=== PATIENT | female | born 1960 | race Caucasian/White ===

== ENCOUNTER 2019-12-12 07:34 | Emergency (ER) | payer OTHER ==
[~2019-12-12] VITALS: Ht 162.6 cm; Wt 68.0 kg
[~2019-12-12 07:34] MED LIST: SERTRALINE HCL50 MG PO
[2019-12-12] MEDS ORDERED: AUGMENTIN 875-1 EACH PO (07:55)
== END 2019-12-12 08:24 | disposition home or self-care (01) ==
LOC: ED 07:34
DX: S61.252A Open bite of right middle finger without damage to nail, initial encounter (principal); W54.0XXA Bitten by dog, initial encounter; F41.9 Anxiety disorder, unspecified; F17.200 Nicotine dependence, unspecified, uncomplicated; Z88.0 Allergy status to penicillin; Z88.5 Allergy status to narcotic agent; Z88.8 Allergy status to other drugs, medicaments and biological substances; Z79.899 Other long term (current) drug therapy
CPT/HCPCS: 12001; 90471; 90715; 99283-25

== ENCOUNTER 2022-09-29 09:40 | Day surgery (SDC) | payer OTHER ==
[~2022-09-29] VITALS: Ht 162.6 cm; Wt 67.3 kg
[~2022-09-29 09:40] MED LIST changes: +AUGMENTIN 875-1 EACH PO; +GLYCOTROL CAPS1 EACH PO; +MULTI VITAMIN1 EACH PO; +PRILOSEC OTC20 MG PO; +VIT C-ROSE HIP500 MG PO
[2022-09-29] MEDS ORDERED: CRESTOR5 MG PO (09:58)
--- NOTE | 2022-09-29 11:54 | NUR ---
09/29/22 1154 Sheets,Christine 1148 PT ARRIVED TO PACU ON RA AND PT REPORTS CRAMPING IN ABD. PT ENCOURAGED TO ROLL TO LEFT SIDE, PT PASSING LARGE AMOUNT OF GAS AND REPORTS FEELING "BETTER." PT WAKES EASILY TO VERBAL STIMULI.
--- NOTE | 2022-10-02 12:36 | OR ---
[facility] [address], [place] [address] Signed DATE OF OPERATION: 09/29/2022 SURGEON: Zay Moody MD PREOPERATIVE DIAGNOSIS: Colon screening. POSTOPERATIVE DIAGNOSES: 1. Sigmoid and left-sided diverticulosis. 2. Multiple small polyps, probably hyperplastic. PROCEDURE: Total colonoscopy to the cecum with cold morcellation polypectomy x5. ANESTHESIA: Intravenous sedation, propofol infusion, Jamison Alvarez CRNA INDICATIONS: This 61-year-old white woman is a patient of Dr. Sally Contreras. She is known to me from the past having undergone breast biopsy for benign fibrocystic changes. She has not had colonoscopy in the past and is admitted at this time to do so. The risk of bleeding, infection, and perforation related to colonoscopy was reviewed with her. FINDINGS: She was given Ancef preoperatively on the basis of prior shoulder replacement operation at [facility]. She had a good prep and complete colonoscopy was undertaken of the cecum with good visualization of the ileocecal valve and appendiceal orifice. She had several small polyps of the rectum, sigmoid and left colon, all of them probably hyperplastic. Numerous diverticula were noted in the sigmoid and elsewhere. There were no signs of colitis or cancer proper. DESCRIPTION OF PROCEDURE: The patient was brought to the endoscopy suite and placed in the lateral decubitus position, given intravenous sedation to the point of slurred speech and nystagmus. Digital rectal examination was normal. An Olympus video colonoscope was passed in the rectum and manipulated into small hyperplastic appearing polyps were noted. They were all excised with cold morcellation technique. The scope was then passed into the sigmoid where numerous diverticula were seen and ultimately advanced to the cecum. The ileocecal valve and Electronically Signed By: ZAY MOODY MD 10/02/22 1236 PATIENT NAME: CHRISTOPHER GARRIDO OPERATIVE REPORT DATE OF : 64 REPORT #: [id number] PHYSICIAN: ZAY MOODY MD PCP: SALLY CONTRERAS MD REPORT IS CONFIDENTIAL AND NOT TO BE RELEASED WITHOUT AUTHORIZATION [facility] [address], [place] [address] Signed appendiceal orifice were normal. Scope was withdrawn and examination undertaken showing no sign of abnormality into the left colon where small polyp was noted, this was excised with cold morcellation technique. Most likely it was hyperplastic. Further withdrawal showed two small polyps of the sigmoid, both excised with cold morcellation technique. Further withdrawal showed the areas of previous biopsy of the rectum. Retroflexed view was normal. Scope was removed and the patient was taken to the recovery room in good condition. CONCLUDING DIAGNOSES: 1. Small polyps x5, possibly hyperplastic. 2. Diverticulosis. PLAN: Recommend high-fiber diet. Recommend repeat colonoscopy in 5 years, sooner if clinically indicated. She will return to the ongoing care of Dr. Contreras MD SUKHDEEP Rodriguez/HANSEL /[id number] cc: Sally Contreras MD Copies: SALLY CONTRERAS DMD ~ Electronically Signed By: ZAY MOODY MD 10/02/22 1236 PATIENT NAME: CHRISTOPHER GARRIDOANNETTE OPERATIVE REPORT DATE OF : 64 REPORT #: [id number] PHYSICIAN: ZAY MOODY MD PCP: SALLY CONTRERAS MD REPORT IS CONFIDENTIAL AND NOT TO BE RELEASED WITHOUT AUTHORIZATION
--- NOTE | 2022-10-04 12:53 | PATH ---
[facility] [address] [place], [place] [address] Signed SPECIMEN(S): A RECTAL POLYPS SPECIMEN(S): B DESCENDING/LEFT COLON POLYP SPECIMEN(S): C SIGMOID POLYP SPECIMEN(S): D RECTOSIGMOID POLYP SPECIMEN SOURCE: A. RECTAL POLYPS B. DESCENDING/LEFT COLON POLYP C. SIGMOID POLYP D. RECTOSIGMOID POLYP CLINICAL HISTORY: Pre: Colon screening. Post: Multiple polyps; diverticulosis FINAL PATHOLOGIC DIAGNOSIS: A. Rectal polyps: - Hyperplastic polyp (three fragments). B. Descending / left colon polyp: - Hyperplastic polyp (one fragment). C. Sigmoid polyp: - Hyperplastic polyp (two fragments). D. Rectosigmoid polyp: - Hyperplastic polyp (four fragments). JVR:[facility]:C2NR MICROSCOPIC EXAMINATION: Histologic sections of all submitted blocks are examined by light microscopy. These findings, together with the gross examination, support the pathologic diagnosis. GROSS DESCRIPTION: Four specimens are received in four containers, labeled "Yaima Alena." A. The specimen, labeled "Alena Erwin, #1," and designated on the requisition "rectum polyp," is received in formalin and consists of three gonzalez soft tissue fragments that measure 0.3 to 0.5 cm in greatest dimension. The specimen is entirely submitted in cassette (A1). B. The specimen, labeled "Alena Erwin, #2," and designated on the requisition "descending/left polyp," is received in formalin and consists of one gonzalez soft tissue fragment that measures 0.4 cm in greatest dimension. The specimen is entirely submitted in cassette (B1). C. The specimen, labeled "Alena Erwin, #3," and designated on the requisition PATIENT NAME: CHRISTOPHER ERWIN PATHOLOGY DATE OF : 64 REPORT #: [id number] PHYSICIAN: [employer] [facility] PCP: SALLY CONTRERAS MD REPORT IS CONFIDENTIAL AND NOT TO BE RELEASED WITHOUT AUTHORIZATION [facility] [address] [place], [place] [address] Signed "sigmoid polyp," is received in formalin and consists of multiple gonzalez soft tissue fragments that measure 0.3 and 0.5 cm in greatest dimension. The specimen is entirely submitted in cassette (C1). D. The specimen, labeled "Alena Erwin, #4," and designated on the requisition "rectosigmoid polyp," is received in formalin and consists of four gonzalez soft tissue fragments that measure 0.1 to 0.4 cm in greatest dimension. The specimen is entirely submitted in cassette (D1). FB (under the direct supervision of a pathologist) The Gross Description was prepared using a voice recognition system. The report was reviewed for accuracy; however, sound-alike word errors, addition and/or deletions may occur. If there is any question about this report, please contact Client Services. PERFORMING LABORATORY: The technical component was performed by [facility], [address] [place] [id number] (CLIA# [id number]). Professional interpretation was performed by [facility], [address] [place] [id number] (CLIA#: [id number]). Diagnostician: Marcello Lincoln MD Pathologist Electronically Signed 10/04/2022 Copies: ~ PATIENT NAME: MILENA ERWINIsela LANGFORD PATHOLOGY DATE OF : 64 REPORT #: [id number] PHYSICIAN: [facility] PCP: SALLY CONTRERAS MD REPORT IS CONFIDENTIAL AND NOT TO BE RELEASED WITHOUT AUTHORIZATION
== END 2022-09-29 12:20 | disposition home or self-care (01) ==
LOC: OPS 09:40 → DS 09:40 → OPS 11:00
PROVIDERS: ATTEND Surgery
PROC: 0DBE8ZX Excision of Large Intestine, Via Natural or Artificial Opening Endoscopic, Diagnostic (ICD-10-PCS; principal; 2022-09-29 11:00)
DX: Z12.11 Encounter for screening for malignant neoplasm of colon (principal); K57.30 Diverticulosis of large intestine without perforation or abscess without bleeding; F17.210 Nicotine dependence, cigarettes, uncomplicated; Z96.611 Presence of right artificial shoulder joint; Z90.711 Acquired absence of uterus with remaining cervical stump; Z88.5 Allergy status to narcotic agent; Z88.8 Allergy status to other drugs, medicaments and biological substances; K63.5 Polyp of colon; K62.1 Rectal polyp
CPT/HCPCS: 00811; J0690; J7121